=== PATIENT | male | born 1965 | race Caucasian/White ===

== ENCOUNTER 2019-04-02 11:23 | Inpatient (IN) | payer MEDICARE, MEDICAID ==
[2019-04-02] VITALS (33 sets, daily range): BP systolic 91–120; BP diastolic 28–75
[~2019-04-02] VITALS: Ht 175.3 cm; Wt 101.6 kg
--- NOTE | 2019-04-02 11:40 | NUR ---
patient [id number], homeless, hearing voices, "i am satellite". Food provided, and juice. Breathing evenly and unlabored. kept comofrtable, will continue to monitor accordingly.
[2019-04-02] MEDS ORDERED: ACETAMINOPHEN ES 500 MG TABLET ONE (11:49)
[2019-04-02 11:58] LABS: BASOPHILS % (AUTO) 0.2 % (0.0-2.0); EOSINOPHILS % (AUTO) 0.1 % (0.0-6.0); LYMPHOCYTES # (AUTO) 1.5 /CMM (0.8-4.8); LYMPHOCYTES % (AUTO) 7.9 % (20.0-44.0); MEAN CORPUSCULAR HGB CONC 31 g/dl (31.0-36.0); MEAN CORPUSCULAR VOLUME 93 fL (80-96); MONOCYTES # (AUTO) 1.1 /CMM (0.1-1.30); MONOCYTES % (AUTO) 5.6 % (2.0-12.0); NEUTROPHILS # (AUTO) 16.3 /CMM (1.8-8.9); NEUTROPHILS % (AUTO) 86.2 % (43.0-81.0); PLATELET COUNT (AUTO) 655 /CMM (150-450)
[2019-04-02] MEDS ORDERED: ACETAMINOPHEN ES 500 MG TABLET PO ONE (12:00)
[2019-04-02 12:04] LABS: CALCIUM, SERUM 8.4 mg/dL (8.5-10.1); CARBON DIOXIDE 30 mmol/L (21-32); CHLORIDE 90 mmol/L (98-107); CREATININE 0.8 mg/dL (0.6-1.3); GLUCOSE 144 mg/dL (74-106); POTASSIUM 2.9 mmol/L (3.5-5.1); SODIUM SERUM 130 mmol/L (136-145); UREA NITROGEN, BLOOD 21 mg/dL (7-18)
[2019-04-02 12:05] LABS: RED BLOOD CELL COUNT(AUTO) 1.18 MIL/uL (4.5-6.0)
[2019-04-02 12:07] LABS: HEMATOCRIT 11 % (39-51); HEMOGLOBIN 3.4 g/dL (13.5-17.5)
[2019-04-02 12:09] LABS: ALANINE AMINOTRANSFERASE 17 U/L (12-78); ALBUMIN 2.2 g/dL (3.4-5.0); ALCOHOL, BLOOD < 3 mg/dL (0-0); ALKALINE PHOSPHATASE 78 U/L (46-116); ASPARTATE AMINOTRANSFERASE 24 U/L (15-37); BILIRUBIN,DIRECT 0.2 mg/dL (0.0-0.2); BILIRUBIN,TOTAL 0.4 mg/dL (0.2-1.0); LIPASE 79 U/L (73-393); TOTAL PROTEIN, SERUM 6.6 g/dL (6.4-8.2)
[2019-04-02 12:10] LABS: ACETAMINOPHEN 0 ug/ml (10-30); SALICYLATE 1.2 mg/dL (2.8-20.0)
[2019-04-02] MEDS ORDERED: PANTOPRAZOLE 40 MG VIAL ONE ×2 (12:29→12:30)
[2019-04-02] MEDS ORDERED: PANTOPRAZOLE 80 MG in IV NS 0.9% 100 ML IV ONE (12:30)
[2019-04-02] MEDS ORDERED: PANTOPRAZOLE 40 MG VIAL IV ONE ×2 (12:30→12:35)
--- NOTE | 2019-04-02 12:39 | NUR ---
MEDICATED PER ERMD ORDER, PT NASEEM WELL. PT TO CT VIA HANSEL.
--- NOTE | 2019-04-02 12:48 | NUR ---
ICU 257
[2019-04-02] MEDS ORDERED: ONDANSETRON HCL/PF 4 MG/2 ML VIAL ONE (12:56)
[2019-04-02] MEDS ORDERED: POTASSIUM CL. PREMIX PERIPHER. 50 ML ONE (13:09)
[2019-04-02] MEDS ORDERED: Magnesium 1GM/D5W 100ML PREMIX 100 ML IV ONE ×2 (13:09→13:37)
[2019-04-02] MEDS: POTASSIUM CL. PREMIX PERIPHER. 50 ML IV SCH ×4 (13:30→16:04)
[2019-04-02] MEDS ORDERED: MAG HYDROX/AL HYDROX/SIMETH 30 ML UDC PO PRN (13:30)
[2019-04-02] MEDS: Magnesium 1GM/D5W 100ML PREMIX 100 ML IV SCH ×2 (13:30→14:47)
[2019-04-02] MEDS ORDERED: ACETAMINOPHEN 325 MG TABLET PO PRN (13:30)
[2019-04-02] MEDS ORDERED: ONDANSETRON HCL/PF 4 MG/2 ML VIAL IVP PRN (13:30)
[2019-04-02] MEDS ORDERED: MAGNESIUM HYDROXIDE 30 ML UDC PO PRN (13:30)
[2019-04-02] MEDS ORDERED: POTASSIUM CL. PREMIX PERIPHER. 150 ML ONE (13:37)
--- NOTE | 2019-04-02 13:46 | NUR ---
REPORT GIVEN TO NAZARIO MARTINEZ FOR CECELIA.
[2019-04-02 13:49] LABS: EOSINOPHILS % (MANUAL) 1 % (0-4); LYMPHOCYTES % (MANUAL) 11 % (16-48); MONOCYTES % (MANUAL) 4 % (0-11.0); NEUTROPHILS % (MANUAL) 84 (42-76)
[2019-04-02] MEDS ORDERED: LORAZEPAM INJ 2 MG/ML VIAL IV PRN (14:00)
[2019-04-02] MEDS ORDERED: PIPERACILLIN /TAZOBACTAM 3.375 G in IV D5W 50 ML IV SCH (14:00)
[2019-04-02] MEDS ORDERED: ONDANSETRON HCL/PF 4 MG/2 ML VIAL IV PRN (14:00)
--- NOTE | 2019-04-02 14:00 | NUR ---
COLLET GLUERSENIOR BOOKKEEPER NOTES PT RECEIVED FROM ER WITH A DIAGNOSIS OF ACUTE GI BLEED AND SEVERE ANEMIA. ORDERS NOTED BY MD ROMAN FOR BLOOD TRANSFUSION. PT NOTED TO BE A/O X2-3 WITH PERIODS OF CONFUSION AND HALLUCINATIONS. HE DENIES ANY PAIN AND/OR DIZZINESS AT THIS TIME. IVS NOTED TO LEFT AND RIGHT AC BOTH 18G. PT CURRENTLY RECEIVING BOTH IV MG AND K REPLACEMENT. WILL CONTINUE FURTHER REPLACEMENTS ORDERED. BELONGINGS VERIFIED. BED IN LOW LOCKED POSITION, SIDE RIAL SUP X2, CALL LIGHT WITHIN REACH. WILL AWAIT FOR FURTHER MD ORDERS AND CONTINUE ADMISSION PROCESS
[2019-04-02] MEDS: NEXIUM 40 MG VIAL IV SCH ×2 (14:49→21:50)
[2019-04-02 15:53] LABS: IRON, SERUM 7 ug/dl (50-175); TOTAL IRON BINDING CAPACITY 213 ug/dl (250-450)
[2019-04-02] MEDS: IV NS 0.9% 1,000 ML IV PRN (16:06)
[2019-04-02 16:07] LABS: FERRITIN 36 ng/mL (8-388)
--- NOTE | 2019-04-02 16:51 | NUR ---
SKI MOLDER NOTES: MD ORDER CLARIFICATION MD ROMAN CONTACTED IN REGARDS TO BLOOD TRANSFUSION ORDER ONLY 2 UNITS OF BLOOD ARE ORDERED HOWEVER 3 ARE INDICATED IN HIS NOTES. PER "TRANSFUSE 3UNITS AND REPEAT CBC AT 1999". WILL CARRY OUT ORDERS INDICATED
--- NOTE | 2019-04-02 18:32 | NUR ---
NETWORK SUPPORT SPECIALIST NOTES: DR RAMIREZ F/U CALLED RECEIVED PT MD IN REGARDS TO CONSULT. MD UPDATED ON PT'S CONDITION, VITALS, LABS AND RESULTS OF CT. MD STATES THAT HE WILL COME TO SEE PT
--- NOTE | 2019-04-02 18:59 | NUR ---
SALES LEDGER CLERK NOTES NO ACUTE CHANGES IN PT'S CONDITION SINCE ADMISSION. PT RECEIVED A TOTAL OF 1UNIT PRBC WITH THE SECOND CURRENTLY INFUSING. NO TRANSFUSION REACTIONS NOTED. VSS STABLE. HE CONTINUES TO DENY ANY PAIN. CONDOM CATHETER REMAINS C/D/I. PERIHERNIAL IVS REMAINS PATENT AND INTACT. PT CONTINUE TOLERATING NS INFUSION AT SET RATE WELL. WILL ENDORSE TO NIGHTSHIFT RN FOR CECELIA
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
--- NOTE | 2019-04-02 19:30 | NUR ---
LITERARY AGENT DR RAMIREZ AT BEDSIDE EVALUATING PT; PER MD PT NEEDS TO BE TRANSFERRED TO HIGHER LEVEL OF CARE. NO INTERVENTIONS BY DR RAMIREZ AT THIS TIME. PLACED ORDER FOR CM TO WORK ON TRANSFER.
--- NOTE | 2019-04-02 21:15 | NUR ---
LUBRICATION WORKER SECOND PRBC TRANSFUSION COMPLETE; NO IMMEDIATE S/O ADVERSE REACTIONS. CBC PENDING FOR 2200. NO ACTIVE S/O BLEEDING NOTED. CONTINUE TO MONITOR.
[2019-04-02] MEDS: PIPERACILLIN /TAZOBACTAM 3.375 G in IV D5W 100 ML IV SCH (21:50)
[2019-04-02 22:23] LABS: BASOPHILS % (AUTO) 0.2 % (0.0-2.0); EOSINOPHILS % (AUTO) 0.2 % (0.0-6.0); LYMPHOCYTES # (AUTO) 1.2 /CMM (0.8-4.8); LYMPHOCYTES % (AUTO) 7.3 % (20.0-44.0); MEAN CORPUSCULAR HGB CONC 33 g/dl (31.0-36.0); MEAN CORPUSCULAR VOLUME 88 fL (80-96); MONOCYTES # (AUTO) 0.8 /CMM (0.1-1.30); MONOCYTES % (AUTO) 4.6 % (2.0-12.0); NEUTROPHILS # (AUTO) 14.3 /CMM (1.8-8.9); NEUTROPHILS % (AUTO) 87.7 % (43.0-81.0); PLATELET COUNT (AUTO) 567 /CMM (150-450); WHITE BLOOD COUNT (AUTO) 16.3 K/uL (4.3-11.0)
--- NOTE | 2019-04-02 22:30 | NUR ---
BOOKKEEPING MACHINE MECHANIC 12/08 PROCEED WITH THIRD PRBC TRANSFUSION.
[2019-04-02 22:32] LABS: HEMATOCRIT 15 % (39-51)
--- NOTE | 2019-04-02 22:50 | NUR ---
EXCAVATOR BACKHOE OPERATOR THIRD PRBC TRANSFUSION STARTED.
[2019-04-02 23:01] LABS: EOSINOPHILS % (MANUAL) 1 % (0-4); LYMPHOCYTES % (MANUAL) 9 % (16-48); MONOCYTES % (MANUAL) 4 % (0-11.0); NEUTROPHILS % (MANUAL) 86 (42-76)
[2019-04-03] VITALS (38 sets, daily range): BP systolic 74–109; BP diastolic 34–67
--- NOTE | 2019-04-03 01:45 | NUR ---
CAT BREEDER PRBC TRANSFUSION COMPLETE. ORDER PLACED FOR HH W/STANDING ORDER TO TRANSFUSE IF HG <7. CONTINUE TO MONITOR.
--- NOTE | 2019-04-03 02:40 | NUR ---
SADDLE AND HARNESS MAKER 5.02/09 NO ACTIVE BLEEDING NOTED. ORDER PLACED FOR FOURTH PRBC.
[2019-04-03 02:41] LABS: HEMOGLOBIN 5.7 g/dL (13.5-17.5)
--- NOTE | 2019-04-03 03:30 | NUR ---
HASSOCK MAKER PRBC TRANSFUSION STARTED.
[2019-04-03] MEDS: PIPERACILLIN /TAZOBACTAM 3.375 G in IV D5W 100 ML IV SCH ×3 (05:02→19:51)
--- NOTE | 2019-04-03 06:42 | NUR ---
MANAGER INSTALLATION FOURTH PRBC TRANSFUSING; NO BM ON THIS SHIFT.
--- NOTE | 2019-04-03 06:59 | NUR ---
CHILD PSYCHOLOGY TEACHER FOURTH PRBC TRANSFUSED; NO IMMEDIATE S/O ADVERSE REACTIONS. LAB WILL DO AM LABS AT 0730.
[2019-04-03 07:48] LABS: BASOPHILS # (AUTO) 0.2 /CMM (0.0-0.2); BASOPHILS % (AUTO) 1.1 % (0.0-2.0); EOSINOPHILS % (AUTO) 0.4 % (0.0-6.0); MEAN CORPUSCULAR HGB CONC 34 g/dl (31.0-36.0); MEAN CORPUSCULAR VOLUME 88 fL (80-96); MONOCYTES # (AUTO) 0.5 /CMM (0.1-1.30); MONOCYTES % (AUTO) 3.9 % (2.0-12.0); NEUTROPHILS # (AUTO) 12.5 /CMM (1.8-8.9); NEUTROPHILS % (AUTO) 87.6 % (43.0-81.0); PLATELET COUNT (AUTO) 527 /CMM (150-450); WHITE BLOOD COUNT (AUTO) 14.2 K/uL (4.3-11.0)
[2019-04-03 07:50] LABS: CALCIUM, SERUM 7.7 mg/dL (8.5-10.1); CREATININE 0.8 mg/dL (0.6-1.3); MAGNESIUM 2.5 mg/dL (1.8-2.4); POTASSIUM 3.5 mmol/L (3.5-5.1)
[2019-04-03 07:51] LABS: HEMOGLOBIN 6.6 g/dL (13.5-17.5)
[2019-04-03 07:52] LABS: HEMATOCRIT 20 % (39-51)
[2019-04-03 08:01] LABS: THYROID STIMULATING HORMONE 1.916 uIU/mL (0.358-3.74)
[2019-04-03 09:17] LABS: LYMPHOCYTES % (MANUAL) 7 % (16-48); MONOCYTES % (MANUAL) 5 % (0-11.0); NEUTROPHILS % (MANUAL) 88 (42-76)
[2019-04-03] MEDS: NEXIUM 40 MG VIAL IV SCH ×2 (10:29→20:00)
[2019-04-03] MEDS: IV NS 0.9% 1,000 ML IV PRN ×2 (12:19→20:02)
[2019-04-03 14:43] LABS: BASOPHILS % (AUTO) 0.2 % (0.0-2.0); EOSINOPHILS % (AUTO) 0.5 % (0.0-6.0); HEMATOCRIT 22 % (39-51); HEMOGLOBIN 7.1 g/dL (13.5-17.5); LYMPHOCYTES # (AUTO) 1.1 /CMM (0.8-4.8); LYMPHOCYTES % (AUTO) 9.1 % (20.0-44.0); MEAN CORPUSCULAR HGB CONC 33 g/dl (31.0-36.0); MEAN CORPUSCULAR VOLUME 88 fL (80-96); MONOCYTES # (AUTO) 0.7 /CMM (0.1-1.30); MONOCYTES % (AUTO) 5.6 % (2.0-12.0); NEUTROPHILS # (AUTO) 10.6 /CMM (1.8-8.9); NEUTROPHILS % (AUTO) 84.6 % (43.0-81.0); PLATELET COUNT (AUTO) 511 /CMM (150-450); RED BLOOD CELL COUNT(AUTO) 2.45 MIL/uL (4.5-6.0); WHITE BLOOD COUNT (AUTO) 12.5 K/uL (4.3-11.0)
[2019-04-03 18:22] LABS: EOSINOPHILS % (MANUAL) 1 % (0-4); LYMPHOCYTES % (MANUAL) 8 % (16-48); MONOCYTES % (MANUAL) 6 % (0-11.0); NEUTROPHILS % (MANUAL) 85 (42-76)
--- NOTE | 2019-04-03 19:30 | NUR ---
RIDING TEACHER INITIAL NOTES RECEIVED PATIENT IN BED, AWAKE, ALERT AND ORIENTED X2, BUT WITH PERIODS OF CONFUSION AND AGITATION. PATIENT REQUESTING FOR WATER. OFFERED ICE CHIPS PATIENT IS NPO, (PER GLOBE TESTER JESSIE, OK FOR SOME ICE CHIPS) BUT PATIENT REFUSED, AND NOTED TO BECOME AGITATED, CURSING AND BABBLING NONSENSICAL THOUGHTS. EXPLAINED TO PATIENT WHY HE IS NPO, PATIENT VERBALIZED UNDERSTANDING, BUT STILL UPSET AND CONTINUES TO SPEAK NONSENSICAL THOUGHTS. ATTEMPTED TO REDIRECT PATIENT, INEFFECTIVE. SECURITY CALLED TO BEDSIDE TO AID IN REDIRECTION/DE-ESCALATION. UPON ARRIVAL OF SECURITY, PATIENT NOTED TO DE-ESCALATE, AND IS NOW CALM AND COOPERATIVE ANSWERING QUESTIONS. BEDSIDE REFUSE DRIVER READS SINUS RHYTHM HR 79 BPM. URINAL AT BEDSIDE. CALL LIGHT WITHIN EASY REACH, BED IN LOWEST AND LOCKED POSITION. WILL CONTINUE TO CLOSELY MONITOR
--- NOTE | 2019-04-03 20:00 | NUR ---
FLATBED STITCHER NOTES PATIENT NOTED TO BE MORE CALM NOW, ANSWERING ALL QUESTIONS, NO LONGER AGITATED. PATIENT CONTINUES WITH PERIODS OF CONFUSION, WILL REDIRECT AND REORIENT NEEDED.
[2019-04-03 20:50] LABS: BASOPHILS % (AUTO) 0.2 % (0.0-2.0); HEMOGLOBIN 7.3 g/dL (13.5-17.5); MONOCYTES # (AUTO) 0.6 /CMM (0.1-1.30); RED BLOOD CELL COUNT(AUTO) 2.44 MIL/uL (4.5-6.0)
[2019-04-03 21:05] LABS: EOSINOPHILS % (AUTO) 0.6 % (0.0-6.0); HEMATOCRIT 22 % (39-51); LYMPHOCYTES # (AUTO) 1.3 /CMM (0.8-4.8); LYMPHOCYTES % (AUTO) 12.1 % (20.0-44.0); MEAN CORPUSCULAR HGB CONC 34 g/dl (31.0-36.0); MEAN CORPUSCULAR VOLUME 88 fL (80-96); MONOCYTES % (AUTO) 5.8 % (2.0-12.0); NEUTROPHILS # (AUTO) 8.5 /CMM (1.8-8.9); NEUTROPHILS % (AUTO) 81.3 % (43.0-81.0); PLATELET COUNT (AUTO) 513 /CMM (150-450)
[2019-04-03 21:37] LABS: LYMPHOCYTES % (MANUAL) 8 % (16-48); MONOCYTES % (MANUAL) 2 % (0-11.0); NEUTROPHILS % (MANUAL) 90 (42-76)
[2019-04-04] VITALS (24 sets, daily range): BP systolic 91–134; BP diastolic 35–72
[2019-04-04 02:05] LABS: BASOPHILS # (AUTO) 0.2 /CMM (0.0-0.2); BASOPHILS % (AUTO) 1.6 % (0.0-2.0); EOSINOPHILS % (AUTO) 7.7 % (0.0-6.0); HEMATOCRIT 21 % (39-51); HEMOGLOBIN 7.1 g/dL (13.5-17.5); LYMPHOCYTES # (AUTO) 0.5 /CMM (0.8-4.8); LYMPHOCYTES % (AUTO) 4.6 % (20.0-44.0); MEAN CORPUSCULAR HGB CONC 34 g/dl (31.0-36.0); MEAN CORPUSCULAR VOLUME 88 fL (80-96); MONOCYTES # (AUTO) 0.4 /CMM (0.1-1.30); MONOCYTES % (AUTO) 3.8 % (2.0-12.0); NEUTROPHILS # (AUTO) 8.9 /CMM (1.8-8.9); NEUTROPHILS % (AUTO) 82.3 % (43.0-81.0); PLATELET COUNT (AUTO) 521 /CMM (150-450); RED BLOOD CELL COUNT(AUTO) 2.41 MIL/uL (4.5-6.0); WHITE BLOOD COUNT (AUTO) 10.8 K/uL (4.3-11.0)
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
[2019-04-04] MEDS: PIPERACILLIN /TAZOBACTAM 3.375 G in IV D5W 100 ML IV SCH ×3 (04:17→20:13)
[2019-04-04 04:42] LABS: BASOPHILS % (AUTO) 0.2 % (0.0-2.0); EOSINOPHILS % (AUTO) 0.8 % (0.0-6.0); HEMATOCRIT 22 % (39-51); HEMOGLOBIN 7.3 g/dL (13.5-17.5); LYMPHOCYTES # (AUTO) 1.5 /CMM (0.8-4.8); LYMPHOCYTES % (AUTO) 13.3 % (20.0-44.0); MEAN CORPUSCULAR HGB CONC 33 g/dl (31.0-36.0); MEAN CORPUSCULAR VOLUME 89 fL (80-96); MONOCYTES # (AUTO) 0.7 /CMM (0.1-1.30); MONOCYTES % (AUTO) 6.3 % (2.0-12.0); NEUTROPHILS # (AUTO) 8.9 /CMM (1.8-8.9); NEUTROPHILS % (AUTO) 79.4 % (43.0-81.0); PLATELET COUNT (AUTO) 530 /CMM (150-450); RED BLOOD CELL COUNT(AUTO) 2.46 MIL/uL (4.5-6.0); WHITE BLOOD COUNT (AUTO) 11.2 K/uL (4.3-11.0)
[2019-04-04 04:49] LABS: CREATININE 0.8 mg/dL (0.6-1.3); POTASSIUM 3.5 mmol/L (3.5-5.1)
--- NOTE | 2019-04-04 06:00 | NUR ---
LINEMAN A CLASS CLOSING NOTES PATIENT KEPT COMFORTABLE THROUGHOUT THE SHIFT. PARTIAL BED BATH RENDERED PATIENT ALLOWED. PATIENT AT TIMES ALERT X1-2 TO SELF, BUT DISORIENTED WITH PERIODS OF AGITATION, REQUIRING FREQUENT REDIRECTION THROUGHOUT THE SHIFT. PATIENT NOW SLEEPING IN BED, APPEARS COMFORTABLE, NO FACIAL GRIMACE NOTED. WILL ENDORSE THE PATIENT TO THE AM SHIFT NURSE FOR CONTINUITY OF CARE
--- NOTE | 2019-04-04 07:15 | NUR ---
INVESTIGATOR INTERNAL REVENUE INITIAL NOTES: Rec'd pt on bed, not in any distress, A/O x 1 confused. No SOB while on R/A. SR on telemonitor. IV line access patent & intact w/ no s/sx of infection/infiltration noted - R AC G18, SL & L EJ G20 w/ NS x 75 cc/hr infusing well. Safety precaution in place w/ be din lowest & locked pos. Call light placed w/in reach. Will cont to monitor & attend pt needs.
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
[2019-04-04] MEDS ORDERED: Z GUARD REMEDY 2 OZ OINT TP PRN (08:00)
--- NOTE | 2019-04-04 08:03 | NUR ---
Pt seen & examined by Estrada ROWAN w/ orders made & carried out.
[2019-04-04 08:20] LABS: BASOPHILS % (AUTO) 0.3 % (0.0-2.0); EOSINOPHILS % (AUTO) 0.7 % (0.0-6.0); HEMATOCRIT 23 % (39-51); HEMOGLOBIN 7.6 g/dL (13.5-17.5); LYMPHOCYTES # (AUTO) 1.4 /CMM (0.8-4.8); LYMPHOCYTES % (AUTO) 11.5 % (20.0-44.0); MEAN CORPUSCULAR HGB CONC 33 g/dl (31.0-36.0); MEAN CORPUSCULAR VOLUME 89 fL (80-96); MONOCYTES # (AUTO) 0.7 /CMM (0.1-1.30); MONOCYTES % (AUTO) 5.8 % (2.0-12.0); NEUTROPHILS # (AUTO) 9.7 /CMM (1.8-8.9); NEUTROPHILS % (AUTO) 81.7 % (43.0-81.0); PLATELET COUNT (AUTO) 580 /CMM (150-450); WHITE BLOOD COUNT (AUTO) 11.8 K/uL (4.3-11.0)
[2019-04-04] MEDS: Z GUARD REMEDY 2 OZ OINT TP SCH (08:36)
[2019-04-04] MEDS: IV D5/ 0.9% NACL 1,000 ML IV PRN ×2 (08:36→22:17)
[2019-04-04] MEDS: NEXIUM 40 MG VIAL IV SCH ×2 (08:37→20:16)
[2019-04-04 14:13] LABS: BASOPHILS % (AUTO) 0.4 % (0.0-2.0); EOSINOPHILS % (AUTO) 0.9 % (0.0-6.0); HEMATOCRIT 24 % (39-51); HEMOGLOBIN 7.7 g/dL (13.5-17.5); LYMPHOCYTES # (AUTO) 1.5 /CMM (0.8-4.8); MEAN CORPUSCULAR HGB CONC 33 g/dl (31.0-36.0); MEAN CORPUSCULAR VOLUME 90 fL (80-96); MONOCYTES # (AUTO) 0.9 /CMM (0.1-1.30); MONOCYTES % (AUTO) 7.7 % (2.0-12.0); PLATELET COUNT (AUTO) 573 /CMM (150-450); RED BLOOD CELL COUNT(AUTO) 2.64 MIL/uL (4.5-6.0); WHITE BLOOD COUNT (AUTO) 11.5 K/uL (4.3-11.0)
[2019-04-04 15:49] LABS: WHITE BLOOD COUNT (AUTO) 10.5 K/uL (4.3-11.0)
--- NOTE | 2019-04-04 18:16 | NUR ---
Pt seen & examined by Dr. Leonard, per MD may change CBC monitoring to H/H q12H.
--- NOTE | 2019-04-04 18:39 | NUR ---
FLOUR INSPECTOR CLOSING NOTES: No significant changes noted w/in shift. Pt remains A/O x 1 still w/ confusion. No SOB while on R/A. SR on telemonitor. IV line access kept patent & intact w/ no s/sx of infection/infiltration noted - R AC G18, SL & L EJ G20 w/ D5NS x 75 cc/hr infusing well. Safety precaution kept in place at all times w/ bed in lowest & locked pos. Call light placed w/in reach. Will endorsed to PM RN for CECELIA.
--- NOTE | 2019-04-04 19:30 | NUR ---
BLUEPRINT CUTTER INITIAL NOTES RECEIVED PATIENT IN BED, AWAKE, ALERT AND ORIENTED X1, BUT WITH PERIODS OF CONFUSION AND AGITATION, UNABLE TO HOLD CONVERSATION DUE TO WANDERING THOUGHTS, REDIRECTABLE. BREATHING EVEN AND NONLABORED, TOLERATING ROOM AIR WELL. BEDSIDE TRANSPORT OPERATIONS INSPECTOR READS SINUS RHYTHM HR 87 BPM. URINAL AT BEDSIDE. CALL LIGHT WITHIN EASY REACH, BED IN LOWEST AND LOCKED POSITION. WILL CONTINUE TO CLOSELY MONITOR
[2019-04-05] VITALS (26 sets, daily range): BP systolic 102–137; BP diastolic 46–87
--- NOTE | 2019-04-05 | NUR ---
LECTURER IN COMPUTER SCIENCE NOTES PATIENT NOTED TO WAKE UP, MORE AGITATED AND CONFUSED COMPARED TO BASELINE. REORIENTATION AND REDIRECTION EFFORTS UTILIZED, EFFECTIVE, PATIENT APOLOGIZED FOR BEHAVIOR AND BECAME CALM AND COOPERATIVE, STILL WITH WANDERING THOUGHTS, UNABLE TO HOLD CONVERSATION
--- NOTE | 2019-04-05 04:00 | NUR ---
R AND D LAB TECHNICIAN NOTES PATIENT REFUSING BED BATH. OFFERED TO AT LEAST CHANGE PATIENT'S SHEETS OR DIAPER, BUT PATIENT STRONGLY REFUSING. WILL CONTINUE CLOSE MONITORING
[2019-04-05] MEDS: PIPERACILLIN /TAZOBACTAM 3.375 G in IV D5W 100 ML IV SCH ×3 (04:20→19:26)
[2019-04-05 04:41] LABS: HEMOGLOBIN 7.5 g/dL (13.5-17.5)
--- NOTE | 2019-04-05 06:58 | NUR ---
TEXTILE TECHNICAL OFFICER CLOSING NOTES PATIENT RESTING IN BED, APPEARS COMFORTABLE. PATIENT AGAIN REFUSING TO HAVE LINENS CHANGED. NO ACUTE CHANGES THROUGHOUT THE SHIFT, WILL ENDORSE PATIENT TO THE AM SHIFT NURSE FOR CONTINUITY OF CARE
--- NOTE | 2019-04-05 07:00 | NUR ---
RN NOTES RECEIVED PATIENT ON BED, A/Ox1, CONFUSED AT TIMES , UNABLE TO HOLD CONVERSATION ON 2L O2 N/C , NO SOB NOTED, RESPIRATION EVEN AND UNLABORED, ON TELE SR HR IN 60'S , PT VOIDING PER URINAL ,NPO PER MD ORDER , NO ACTIVE BLEEDING NOTED, CALL LIGHT WITHIN EASY REACH, BED IN LOWEST AND LOCKED POSITION. WILL CONTINUE TO CLOSELY MONITOR.
[2019-04-05] MEDS: NEXIUM 40 MG VIAL IV SCH (08:13)
[2019-04-05] MEDS: Z GUARD REMEDY 2 OZ OINT TP SCH (08:14)
[2019-04-05] MEDS: IV D5/ 0.9% NACL 1,000 ML IV PRN (10:47)
--- NOTE | 2019-04-05 12:00 | NUR ---
RN NOTES VSS STABLE, NO DISTRESS NOTED , PT IS CONFUSED, CONTINUE TO MONITOR .
[2019-04-05] MEDS: SOD FERRIC GLUC 125 MG in IV NS 0.9% 100 ML IV SCH (14:20)
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
--- NOTE | 2019-04-05 15:00 | NUR ---
RN NOTES R AC IV LEAKING FORM THE SITE, H/L D/JESSICA, NEW LINE STARTED ON R AC G 20 , CONTINUE TO MONITOR.
[2019-04-05] MEDS: PANTOPRAZOLE 40 MG VIAL IV SCH (17:00)
--- NOTE | 2019-04-05 18:17 | NUR ---
RN NOTES PT STABLE, NO SIGNIFICANT CHANGES NOTED ON THIS SHIFT, SR UP x3, CALL LIGHT WITHIN EASY REACH, WILL ENDORSE TO TAX STAFF ACCOUNTANT NURSE FOR CONTINUITY OF CARE .
[2019-04-05 20:41] LABS: HEMOGLOBIN 7.8 g/dL (13.5-17.5)
[2019-04-06] VITALS (23 sets, daily range): BP systolic 93–129; BP diastolic 41–106
[2019-04-06] MEDS: IV D5/ 0.9% NACL 1,000 ML IV PRN ×2 (01:04→15:10)
[2019-04-06] MEDS: PIPERACILLIN /TAZOBACTAM 3.375 G in IV D5W 100 ML IV SCH ×3 (03:31→20:42)
[2019-04-06 04:52] LABS: BASOPHILS % (AUTO) 0.6 % (0.0-2.0); EOSINOPHILS % (AUTO) 1.3 % (0.0-6.0); HEMATOCRIT 22 % (39-51); HEMOGLOBIN 7.7 g/dL (13.5-17.5); LYMPHOCYTES # (AUTO) 1.3 /CMM (0.8-4.8); MEAN CORPUSCULAR HGB CONC 34 g/dl (31.0-36.0); MEAN CORPUSCULAR VOLUME 89 fL (80-96); MONOCYTES # (AUTO) 0.6 /CMM (0.1-1.30); MONOCYTES % (AUTO) 8.5 % (2.0-12.0); NEUTROPHILS # (AUTO) 5.2 /CMM (1.8-8.9); NEUTROPHILS % (AUTO) 71.6 % (43.0-81.0); PLATELET COUNT (AUTO) 549 /CMM (150-450); RED BLOOD CELL COUNT(AUTO) 2.51 MIL/uL (4.5-6.0); WHITE BLOOD COUNT (AUTO) 7.3 K/uL (4.3-11.0)
[2019-04-06 05:14] LABS: CALCIUM, SERUM 8.4 mg/dL (8.5-10.1); CREATININE 0.8 mg/dL (0.6-1.3); POTASSIUM 3.7 mmol/L (3.5-5.1)
--- NOTE | 2019-04-06 07:00 | NUR ---
SORTING GRAPPLE OPERATOR NOTES RECEIVED BEDSIDE REPORT. PATIENT A/O X2 WITH CONFUSION AT TIMES. NO SIGNS OR SYMPTOMS OF RESPIRATORY DISTRESS SATURATING 98% ON ROOM AIR NO ACUTE PAIN NOTED. SINUS ON MONITOR WITH PVC. NO COMPLAINT OF NAUSEA OR VOMITING WANTS TO EAT. IVF RUNNING D5NS@ 75 ML/HR. IV ACCESS TO LAC # 20 GAUGE AND LFA # 20 GAUGE. NPO AT THIS TIME PER REPORT AND SW NOTES PATIENT AWAITING TRANSFER FOR HIGHER LEVEL OF CARE.SAFETY PRECAUTIONS IN PLACE BED IN LOW LOCKED POSITION CALL LIGHT WITHIN REACH.WILL CONT TO MONITOR ACCORDINGLY
[2019-04-06] MEDS: PANTOPRAZOLE 40 MG VIAL IV SCH ×2 (08:36→17:26)
[2019-04-06] MEDS: Z GUARD REMEDY 2 OZ OINT TP SCH (08:37)
[2019-04-06 13:21] LABS: HEMOGLOBIN 7.4 g/dL (13.5-17.5)
[2019-04-06] MEDS: SOD FERRIC GLUC 125 MG in IV NS 0.9% 100 ML IV SCH (15:22)
--- NOTE | 2019-04-06 17:22 | NUR ---
ORDER OBTAINED FOR PICC LINE FROM GENARO. PT TO START TPN
--- NOTE | 2019-04-06 17:22 | NUR ---
GENARO TO PUT ORDER IN FOR TPN
--- NOTE | 2019-04-06 18:45 | NUR ---
SPOKE WITH MAYA GARCIA NP TPN AND PICC ON HOLD D/T TRANSFER CONSULT WITH [facility] TO TRY AND TRANSFER TO TO [facility] . WILL ENDORSE TO NOC.
--- NOTE | 2019-04-06 19:57 | NUR ---
CUFF STITCHER. INITIAL ASSESSMENT, RECEIVED THE PT REST ON THE BED. AWAKE, ALERT, FOLLOW COMMANDS. SHIPS OR BARGES LOADER SHOWING S ANTWAN. ROOM AIR. SAT 98%, NO ACUTE DISTRESS NOTED. IV LT AC 20G. HOB ELEVATED. AFEBRILE, WILL CONTINUE TO MONITOR VITALS.
[2019-04-06 20:03] LABS: HEMOGLOBIN 7.6 g/dL (13.5-17.5)
[2019-04-07] VITALS (20 sets, daily range): BP systolic 103–140; BP diastolic 45–81
--- NOTE | 2019-04-07 03:10 | NUR ---
ARMORED TRUCK DRIVER.AM CARE, ORAL CARE, BED BATH GIVEN. LINEN CHANGED, REMAINING SAME IVF RUNNING, PT ON ROOM AIR, SAT 98%, NO ACUTE DISTRESS NOTED, DIRECTOR REACTOR PROJECTS SHOWING NSR. IV LT HAND 20G, HOB ELEVATED,N DURING SHIFT NO ACTIVE BLEEDING NOTED. AFEBRILE, WILL CONTINUE TO MONITOR VITALS.
[2019-04-07] MEDS: PIPERACILLIN /TAZOBACTAM 3.375 G in IV D5W 100 ML IV SCH ×3 (03:44→20:29)
[2019-04-07] MEDS: IV D5/ 0.9% NACL 1,000 ML IV PRN ×2 (03:55→15:37)
[2019-04-07 04:08] LABS: BASOPHILS % (AUTO) 0.5 % (0.0-2.0); EOSINOPHILS % (AUTO) 1.8 % (0.0-6.0); HEMATOCRIT 23 % (39-51); HEMOGLOBIN 7.5 g/dL (13.5-17.5); LYMPHOCYTES # (AUTO) 1.5 /CMM (0.8-4.8); LYMPHOCYTES % (AUTO) 20.6 % (20.0-44.0); MEAN CORPUSCULAR HGB CONC 33 g/dl (31.0-36.0); MEAN CORPUSCULAR VOLUME 90 fL (80-96); MONOCYTES # (AUTO) 0.7 /CMM (0.1-1.30); MONOCYTES % (AUTO) 9.7 % (2.0-12.0); NEUTROPHILS % (AUTO) 67.4 % (43.0-81.0); PLATELET COUNT (AUTO) 549 /CMM (150-450); RED BLOOD CELL COUNT(AUTO) 2.52 MIL/uL (4.5-6.0); WHITE BLOOD COUNT (AUTO) 7.5 K/uL (4.3-11.0)
[2019-04-07 04:20] LABS: CREATININE 0.7 mg/dL (0.6-1.3); POTASSIUM 3.5 mmol/L (3.5-5.1)
[2019-04-07] MEDS ORDERED: VANCOMYCIN 1.5 GM in IV D5W 500ml IV ONE (06:30)
[2019-04-07] MEDS: PANTOPRAZOLE 40 MG VIAL IV SCH ×2 (09:05→16:29)
[2019-04-07] MEDS: Z GUARD REMEDY 2 OZ OINT TP SCH (09:06)
--- NOTE | 2019-04-07 10:39 | NUR ---
RN NOTE 0715: Received patient awake, alert to name, does not know which hospital he is in right now, does not know the date. Reoriented patient. Made him aware for the plan of care, awaiting other hospital's bed availability. SB on the monitor. PIVs intact. IVF infusing as ordered. Noted with nausea, patient spits clear white sputum. Able to use urinals. Tolerated room air. Remained NPO. No BM endorsed from last shift, will continue to monitor. 1000: S/E by Len STERILE PROCESSING TECHNOLOGIST, verbalized able to move to [facility], made CN aware. Per STERILE PROCESSING TECHNOLOGIST, hold off TPN for now, still awaiting placement.
[2019-04-07] MEDS: SOD FERRIC GLUC 125 MG in IV NS 0.9% 100 ML IV SCH (13:54)
[2019-04-07] MEDS ORDERED: TPN/PPN PER PHARMACY IV PRN (16:30)
[2019-04-07 18:35] LABS: HEMOGLOBIN 7.7 g/dL (13.5-17.5)
--- NOTE | 2019-04-07 18:41 | NUR ---
RN NOTE 1830: S/E by Richard DIRECTOR OF HOTEL, made aware for the plan of transfer to other hospital, and agreed for the hold off for TPN for now. No any significant changes noted. No active bleeding noted, no BM on my shift, able to change linens and give bed bath. Patient noted with gagging/inducing to vomit, encouraged not to do it. Green bag provided, noted with spitting clear white secretions. PIVs intact. 1840: Preparing patient for transfer to [facility], patient aware for the transfer.
--- NOTE | 2019-04-07 19:02 | NUR ---
RN NOTE Brought patient to [facility] 107 via bed, no any significant changes noted. VSS. Endorsed care to Shania LANGE. Placed in the monitor.
--- NOTE | 2019-04-07 19:30 | NUR ---
[facility] RN NOTES RECEIVED PTS AND REPORT FROM LAZARO MANAGER PE , PTS IS ALERT X1-2 WITH CONFUSION , NPO STATUS PTS ON IVF OF D5NS AT 75CC/HR INFUSING WELL . ALL NEEDS ATTENDED TOO ON TELE MONITOR ANTWAN ON THE MONITOR 44-58 , NO SOB NO DISTRESS NOTED . SATING 96% ON ROOM AIR .V/S STABLE AFEBRILE , BREATHING EVEN AND UNLABORED , DUE IVPB ANTIBIOTIC GIVEN ORDERED , PTS NOTED WITH EPISODE OF HALLUCINATION , WILL CONTINUE TO MONITOR PTS.
[2019-04-08] VITALS: BP 115/60
[2019-04-08 04:00] VITALS: BP_SYST 112; BP_SYST 115; BP_DIAS 53; BP_DIAS 60
[2019-04-08] MEDS: PIPERACILLIN /TAZOBACTAM 3.375 G in IV D5W 100 ML IV SCH ×3 (04:32→20:55)
[2019-04-08] MEDS: IV D5/ 0.9% NACL 1,000 ML IV PRN (05:16)
--- NOTE | 2019-04-08 05:47 | NUR ---
ZI RN NOTES PTS NON COMPLIANT TO CARE, PTS REFUSED MORNING CARE, REFUSE TELE BOX.EXPLAIN R/B.WILL CONTINUE TO MONITOR PTS.
--- NOTE | 2019-04-08 06:42 | NUR ---
ZI RN NOTES PTS REMAINS IN BED STILL CONFUSED AND HALLUCINATING, V/S STABLE AFEBRILE CONTINUE ON IVF OF D5NS AT 75CC/HR. WILL ENDORSE TO RN DAY SHIFT FOR CONTINUITY OF CARE PTS REMAIN ON NPO STATUS.
--- NOTE | 2019-04-08 07:20 | NUR ---
ZI/RN OPENING NOTES RECEIVED PATIENT IN BED AWAKE ALERT AND ABLE TO MAKE NEEDS KNOWN. PATIENT IS ALERT AND ORIENTED X1-2 WITH CONFUSION. NO PAIN OR ACUTE DISTRESS AT THIS TIME. RESPIRATION EVEN AND UNLABORED. SKIN IS DRY WARM TO TOUCH. CONTINUES ON NPO STATUS. PATIENT ON IVF OF D5NS AT 75CC/HR INFUSING WELL. IV SITE INTACT AND PATENT. NO S/S OF INFECTION OR INFILTRATION. PATIENT ON TELE MONITOR AROUND 50-60'S. ALL NEEDS ANTICIPATED. CALL LIGHT WITHIN REACHED. BED LOCKED AND IN LOWEST POSITION. SAFETY MAINTAINED. PLAN OF CARE DISCUSSED. WILL CONTINUE TO MONITOR CLOSELY.
[2019-04-08 07:41] LABS: BASOPHILS % (AUTO) 0.6 % (0.0-2.0); EOSINOPHILS % (AUTO) 2.2 % (0.0-6.0); HEMATOCRIT 23 % (39-51); HEMOGLOBIN 7.5 g/dL (13.5-17.5); LYMPHOCYTES # (AUTO) 1.4 /CMM (0.8-4.8); MEAN CORPUSCULAR HGB CONC 32 g/dl (31.0-36.0); MEAN CORPUSCULAR VOLUME 92 fL (80-96); MONOCYTES # (AUTO) 0.4 /CMM (0.1-1.30); MONOCYTES % (AUTO) 7.8 % (2.0-12.0); NEUTROPHILS # (AUTO) 3.7 /CMM (1.8-8.9); NEUTROPHILS % (AUTO) 65.4 % (43.0-81.0); PLATELET COUNT (AUTO) 606 /CMM (150-450); RED BLOOD CELL COUNT(AUTO) 2.54 MIL/uL (4.5-6.0); WHITE BLOOD COUNT (AUTO) 5.7 K/uL (4.3-11.0)
[2019-04-08 07:57] LABS: CALCIUM, SERUM 8.1 mg/dL (8.5-10.1); CREATININE 0.8 mg/dL (0.6-1.3); POTASSIUM 3.6 mmol/L (3.5-5.1)
[2019-04-08 08:00] VITALS: BP 126/67
[2019-04-08] MEDS ORDERED: NITROGLYCERIN 0.4 MG/TAB BOTTLE SL ONE (08:30)
[2019-04-08] MEDS ORDERED: METOPROLOL TARTRATE INJ 5 MG/5 ML AMPUL IVP ONE (08:30)
[2019-04-08] MEDS: PANTOPRAZOLE 40 MG VIAL IV SCH ×2 (08:34→16:12)
[2019-04-08] MEDS: Z GUARD REMEDY 2 OZ OINT TP SCH (08:35)
[2019-04-08] MEDS ORDERED: IOHEXOL-350 100 ML VIAL IV ONE ×2 (08:56→09:48)
[2019-04-08] MEDS ORDERED: IV NS 0.9% 250 ML IV ONE (08:56)
[2019-04-08] MEDS ORDERED: CT SWABBABLE VALVE TRANS SET 1 EA INFUS.SET MC ONE (08:56)
--- NOTE | 2019-04-08 09:11 | NUR ---
RN NOTES PATIENT WAS PICKED UP FOR HIS PROCEDURE OF CT ANGIO HEART W/ 3D IMAGE. PATIENT LEFT THE UNIT IN STABLE CONDITION. WILL BE WAITING FOR THE PATIENT'S RETURN.
[2019-04-08] MEDS ORDERED: METOPROLOL TARTRATE INJ 5 MG/5 ML AMPUL ONE (09:18)
--- NOTE | 2019-04-08 10:44 | NUR ---
MS/RN NOTES RECEIVED A PHONE CALL [facility] [employer] SAL[employer] AND PRODUCTION MANAGER [employer] REGARDING THE PATIENT THAT THEY NEED A PRELIMINARY D/C SUMMARY TO BE FAXED OVER THEM FROM THE CM FOR THEM TO START THE PROCESS OF PLACING THE PATIENT FOR TRANSFER. CALLED CURRY SIERRA RIGHT AFTER TO RELAY THE INFORMATION. ACCORDING TO HER SHE WILL FOLLOW UP WITH [employer].
[2019-04-08] MEDS ORDERED: PANT40VI IV (10:56)
[2019-04-08] MEDS ORDERED: PIPE3.379 IV (10:56)
[2019-04-08] MEDS: SOD FERRIC GLUC 125 MG in IV NS 0.9% 100 ML IV SCH (14:45)
[2019-04-08] MEDS ORDERED: FEE PK DOSING 1 MIN EA MC ONE (15:23)
[2019-04-08] MEDS ORDERED: FEE TPN 1 MIN EA MC ONE (15:25)
[2019-04-08] MEDS ORDERED: DEXTROSE 50%-WATER 50 ML DISP.SYRIN IV PRN (15:30)
[2019-04-08] MEDS ORDERED: INSULIN REGULAR, HUMAN 100 UNIT/ML 3 ML VIAL SQ PRN (15:30)
[2019-04-08] MEDS ORDERED: TPN BAG #1 IV PRN ×6 (15:30)
[2019-04-08 16:00] VITALS: BP_SYST 110; BP_SYST 116; BP_DIAS 62; BP_DIAS 72
[2019-04-08] MEDS ORDERED: IV D5/ 0.9% NACL 1,000 ML IV PRN (17:00)
[2019-04-08] MEDS: BLOOD SUGAR DIAGNOSTIC 1 EACH STRIP IN SCH (17:16)
--- NOTE | 2019-04-08 19:20 | NUR ---
RN NOTES: RECEIVED AWAKE ON BED, SEMI FOWLERS POSITION,A/OX1 WITH PERIODS OF CONFUSION,PICC LINE BRYSON INTACT, WITH TPN ONGOING AT 50CC/HR , AND D5NS AT 25 ML/HR,ORIENTED TO UNIT AND STAFF, PER ENDORSEMENT PATIENT REMAINED NPO AND FOR POSSIBLE TRANSFER TO [facility] FOR SURGERY ONCE BED IS AVAILABLE. KEPT ON CLOSE WATCH, BED LOW AND LOCKED, CALL LIGHT WITHIN EASY REACH. WILL CONTINUE TO MONITOR FOR ANY SIGN OF BLEEDING,
--- NOTE | 2019-04-08 19:20 | NUR ---
MS/RN CLOSING NOTES PATIENT CONTINUES TO REMAIN IN STABLE CONDITION THROUGHOUT THE SHIFT. PROVIDED SAFETY AND COMFORT. CONTINUES ON NPO STATUS. PATIENT ON IVF OF D5NS AT 25CC/HR. WELL TPN VIA PICC LINE ON BRYSON @50CC/HR. INFUSING WELL. IV SITE INTACT AND PATENT. NO S/S OF INFECTION OR INFILTRATION. ALL NEEDS ANTICIPATED. KEPT CLEAN AND DRY. CALL LIGHT WITHIN REACHED. BED LOCKED AND IN LOWEST POSITION. SAFETY MAINTAINED. WILL CONTINUE TO MONITOR CLOSELY. ENDORSED TO PM NURSE FOR CECELIA.
[2019-04-08 20:00] VITALS: BP 121/59
[2019-04-09] VITALS (8 sets, daily range): BP systolic 106–145; BP diastolic 59–73
[2019-04-09] MEDS: BLOOD SUGAR DIAGNOSTIC 1 EACH STRIP IN SCH ×4 (00:35→17:02)
--- NOTE | 2019-04-09 00:36 | NUR ---
RN NOTES: BLOOD SUGAR CHECK =95, NO INSULIN PER SCALE, WILL CONTINUE TO MONITOR FOR SIGN OF HYPER/HYPOGLYCEMIA.
[2019-04-09] MEDS: PIPERACILLIN /TAZOBACTAM 3.375 G in IV D5W 100 ML IV SCH ×3 (04:06→20:12)
--- NOTE | 2019-04-09 06:52 | NUR ---
RN NOTES: ABLE TO SLEEP AT SHORT INTERVALS, CALLS AND NEEDS ATTENDED, LATEST BS AT 0600=96, NO INSULIN PER SCALE, TPN ONGOING , IV/ATB ONGOING AT 25ML/HR, FALL,SAFETY AND ASPIRATION PRECAUTION OBSERVE,REMAIN NPO, ENDORSED FOR CONTINUITY OF CARE.
--- NOTE | 2019-04-09 07:25 | NUR ---
MS/RN OPENING NOTES RECEIVED PATIENT IN BED AWAKE ALERT AND ABLE TO MAKE NEEDS KNOWN. PATIENT IS ALERT AND ORIENTED X1-2. NO PAIN OR ACUTE DISTRESS AT THIS TIME. RESPIRATION EVEN AND UNLABORED. SKIN IS DRY WARM TO TOUCH. CONTINUES ON NPO STATUS. PATIENT ON IVF AND TPN. ABLE TO TOLERATE WELL. PICC LINE INTACT AND PATENT. NO S/S OF INFECTION OR INFILTRATION. ALL NEEDS ANTICIPATED. CALL LIGHT WITHIN REACHED. BED LOCKED AND IN LOWEST POSITION. SAFETY MAINTAINED. PLAN OF CARE DISCUSSED. WILL CONTINUE TO MONITOR CLOSELY.
[2019-04-09 07:31] LABS: CALCIUM, SERUM 8.2 mg/dL (8.5-10.1); CREATININE 0.7 mg/dL (0.6-1.3); MAGNESIUM 2.1 mg/dL (1.8-2.4); PHOSPHORUS 2.9 mg/dL (2.5-4.9); POTASSIUM 3.7 mmol/L (3.5-5.1)
[2019-04-09] MEDS: PANTOPRAZOLE 40 MG VIAL IV SCH ×2 (09:11→16:39)
[2019-04-09] MEDS: Z GUARD REMEDY 2 OZ OINT TP SCH (09:12)
[2019-04-09] MEDS: FAT EMULSION 20% 500 ML in PREMIX 1 EA IV SCH (11:16)
[2019-04-09] MEDS: SOD FERRIC GLUC 125 MG in IV NS 0.9% 100 ML IV SCH (14:37)
[2019-04-09] MEDS ORDERED: TPN BAG #2 IV PRN ×4 (16:00)
--- NOTE | 2019-04-09 18:33 | NUR ---
MS/RN CLOSING NOTES PATIENT CONTINUES TO REMAIN IN STABLE CONDITION THROUGHOUT THE SHIFT. PROVIDED COMFORT AND SAFETY. CONTINUES ON NPO STATUS. PATIENT CONTINUES ON IVF AND TPN VIA BRYSON PICC LINE. ABLE TO TOLERATE WELL. PICC LINE INTACT AND PATENT. NO S/S OF INFECTION OR INFILTRATION. NEW IV SITE WAS PLACED ON LEFT WRIST. FLUSHING WELL. ALL NEEDS ANTICIPATED. CALL LIGHT WITHIN REACHED. BED LOCKED AND IN LOWEST POSITION. SAFETY MAINTAINED. WILL CONTINUE TO MONITOR CLOSELY. ENDORSED TO PM NURSE FOR CECELIA.
--- NOTE | 2019-04-09 19:15 | NUR ---
MS RN OPENING NOTES Received patient A/O x 2-3, awake, on RA. No SOB/respiratory distress noted. With TPN infusing well through PICC line BRYSON, no s/sx of infiltration/infection noted. Patient denies any discomfort at this time. Discussed with patient the POC within the shift, patient verbalized understanding. Kept on bed clean, dry and comfortable. On fall precautions. Call light within easy reach. Will continue to monitor accordingly.
[2019-04-10] MEDS: BLOOD SUGAR DIAGNOSTIC 1 EACH STRIP IN SCH ×5 (00:17→23:12)
[2019-04-10 04:00] VITALS: BP 135/64
[2019-04-10] MEDS: PIPERACILLIN /TAZOBACTAM 3.375 G in IV D5W 100 ML IV SCH ×3 (04:06→20:01)
[2019-04-10 06:27] LABS: CALCIUM, SERUM 8.2 mg/dL (8.5-10.1); CREATININE 0.7 mg/dL (0.6-1.3); MAGNESIUM 1.9 mg/dL (1.8-2.4); PHOSPHORUS 3.3 mg/dL (2.5-4.9); POTASSIUM 3.6 mmol/L (3.5-5.1)
--- NOTE | 2019-04-10 07:03 | NUR ---
MS RN CLOSING NOTES Patient asleep, easily awaken. On RA, no SOB/respiratory distress noted. Ambulatory to bathroom with stand by assistance at all time. With BRYSON PICC LINE in place, patent with TPN + Lipids infusing well as ordered., no infiltration or s/sx of infection noted. All nursing needs attended. Due meds given as ordered, no ASE noted. Kept on bed clean, dry and comfortable. Call light within easy reach. On fall precautions. Endorsed to the next shift.
--- NOTE | 2019-04-10 07:25 | NUR ---
RN OPENING NOTES RECEIVED PATIENT SLEEPING IN BED, EASILY AROUSED. HE IS AO X2-3, VERBAL, AND AMBULATORY. HE IS ON RA, TOLERATING WELL, SHOWS NO S/SX OF RESP DISTRESS OR SOB. HE IS CURRENTLY NPO FOR GI BLEED. HE HAS A BRYSON PICC INFUSING TPN AND LIPIDS. HE HAS A L WRIST 22 G, PATENT AND INTACT. HE DENIES ANY PAIN OR DISCOMFORT AT THIS TIME. SAFETY MEASURES HAVE BEEN IMPLEMENTED, CALL LIGHT IS WITHIN REACH, BED IS IN LOWEST AND LOCKED POSITION, SIDE RAILS UP X2, WILL CONTINUE TO MONITOR FOR ANY CHANGES.
[2019-04-10 08:00] VITALS: BP 141/65
[2019-04-10] MEDS: PANTOPRAZOLE 40 MG VIAL IV SCH ×3 (09:00→17:34)
[2019-04-10] MEDS: Z GUARD REMEDY 2 OZ OINT TP SCH (09:26)
[2019-04-10 11:16] LABS: BASOPHILS # (AUTO) 0.1 /CMM (0.0-0.2); BASOPHILS % (AUTO) 0.9 % (0.0-2.0); EOSINOPHILS % (AUTO) 3.1 % (0.0-6.0); HEMATOCRIT 26 % (39-51); HEMOGLOBIN 8.3 g/dL (13.5-17.5); LYMPHOCYTES # (AUTO) 1.3 /CMM (0.8-4.8); LYMPHOCYTES % (AUTO) 24.7 % (20.0-44.0); MEAN CORPUSCULAR HGB CONC 32 g/dl (31.0-36.0); MEAN CORPUSCULAR VOLUME 93 fL (80-96); MONOCYTES # (AUTO) 0.5 /CMM (0.1-1.30); MONOCYTES % (AUTO) 8.4 % (2.0-12.0); NEUTROPHILS # (AUTO) 3.4 /CMM (1.8-8.9); NEUTROPHILS % (AUTO) 62.9 % (43.0-81.0); PLATELET COUNT (AUTO) 583 /CMM (150-450); RED BLOOD CELL COUNT(AUTO) 2.77 MIL/uL (4.5-6.0); WHITE BLOOD COUNT (AUTO) 5.4 K/uL (4.3-11.0)
--- NOTE | 2019-04-10 11:24 | NUR ---
0900 DOSE OF PANTOPRAZOLE GIVEN LATE. READ MED ORDER WRONG AND THOUGHT IT WAS A PO DOSE, PT IS NPO. SPOKE WITH PHARMACY AND WAS TOLD IT WAS OK TO ADMINISTER NOW. WILL CONTINUE TO MONITOR
[2019-04-10] MEDS ORDERED: TPN BAG #3 IV PRN ×6 (13:00)
[2019-04-10 16:00] VITALS: BP 140/69
--- NOTE | 2019-04-10 18:50 | NUR ---
RN CLOSING NOTES PATIENT IS RESTING IN BED COMFORTABLY, DENIES ANY PAIN OR DISCOMFORT AT THIS TIME. PT REFUSED LINEN CHANGE. TPN BAG HAS BEEN CHANGED, LIPIDS FINISHED INFUSING. PATIENT HAS BEEN NPO. PT NEEDS HAVE BEEN MET. VITAL SIGNS ARE STABLE, NO ACUTE CHANGES OCCURRED THROUGHOUT THE DAY. SAFETY MEASURES HAVE BEEN IMPLEMENTED, CALL LIGHT IS WITHIN REACH, BED IS IN LOWEST AND LOCKED POSITION, SIDE RAILS UP X2, WILL ENDORSE TO NIGHTSHIFT RN FOR CONTINUITY OF CARE.
--- NOTE | 2019-04-10 19:37 | NUR ---
MS RN NOTES RECEIVED PT ON BED. A/O X3. ON ROOM AIR NO RESPIRATORY DISTRESS NOTED. IV ACCESS ON LWRIST G22 PATENT AND INTACT. AND BRYSON PICC WITH TPN RUNNING @ 60CC/HR. HEAD OF BED ELEVATED. SIDE RAILS UP. CALL LIGHT WITHIN REACH. BED ALARM ON. WILL CONTINUE TO MONITOR PT CLOSELY.
[2019-04-10 20:00] VITALS: BP 137/42
--- NOTE | 2019-04-11 01:59 | NUR ---
rn initial notes: received report from joyce smith. pt was transferred from [facility]. pt ios a/o x3 on ra respirations even and unlabored. pt has sam picc line with ongoing tpn bag #3 at 60ml/hr. pt also has iv access on left wrist g 22 , patent and flushing well, on hl. ble offloaded on pillows, scd in use. pt on npo okay for ice chips. inventory of belongings completed by eddie unger. safety precautions for fall initiated, call light in reach, will continue monitoring pt.
--- NOTE | 2019-04-11 02:04 | NUR ---
MS RN NOTES PT TRANSFERRED STABLE. REPORT GIVEN TO 2WEST RN.
[2019-04-11 03:45] VITALS: BP 141/72
[2019-04-11] MEDS: PIPERACILLIN /TAZOBACTAM 3.375 G in IV D5W 100 ML IV SCH ×2 (03:50→13:03)
[2019-04-11] MEDS ORDERED: TPN BAG #4 IV PRN ×4 (05:00)
[2019-04-11] MEDS: BLOOD SUGAR DIAGNOSTIC 1 EACH STRIP IN SCH ×3 (05:50→18:12)
--- NOTE | 2019-04-11 05:51 | NUR ---
RN NOTES: PT'S BLOOD SUGAR IS 100, NO INSULIN COVERAGE GIVEN PER SLIDING SCALE
--- NOTE | 2019-04-11 06:37 | NUR ---
TPN BAG #4: ABOVE TPN COMPLETED/FINISHED. NEW BAG OF TPN ADMINISTERED AT THIS TIME, COSIGNED BY ANOTHER NAZARIO RICH.
--- NOTE | 2019-04-11 07:17 | NUR ---
RN CLOSING NOTES: PT IN BED, DENIES ANY PAIN OR DISCOMFORT AT THIS TIME. NO S/S OF ACTIVE BLEEDING NOTED. IV ACCESS REMAINS PATENT AND FLUSHING WELL, INFUSING WITH TPN BAG #4 AT 60 ML/HR. BLE OFFLOADED ON PILLOWS. REMAINS NPO. [facility]. SAFETY PRECAUTIONS FOR FALL REMAINS ENGAGED, CALL LIGHT IN REACH, WILL ENDORSE TO DAY RN FOR CONTINUITY OF CARE.
--- NOTE | 2019-04-11 07:23 | NUR ---
MS RN OPENING NOTES RECEIVED PATIENT IN BED, ALERT AND AWAKE ORIENTED X3 WATCHING TV. DENIES ANY C/O PAIN NOR DISCOMFORT. NO SOB OBSERVED. BRYSON PICC LINE DOUBLE LUMEN INTACT AND PATENT INFUSING TPN @ 60ML/HR NASEEM WELL. BED IN LOWEST POSITION, LOCKED. CALL LIGHT WITHIN REACH.
[2019-04-11 07:37] LABS: BASOPHILS # (AUTO) 0.2 /CMM (0.0-0.2); BASOPHILS % (AUTO) 2.2 % (0.0-2.0); EOSINOPHILS % (AUTO) 2.5 % (0.0-6.0); HEMATOCRIT 28 % (39-51); HEMOGLOBIN 9.2 g/dL (13.5-17.5); LYMPHOCYTES # (AUTO) 1.9 /CMM (0.8-4.8); LYMPHOCYTES % (AUTO) 23.4 % (20.0-44.0); MEAN CORPUSCULAR HGB CONC 33 g/dl (31.0-36.0); MEAN CORPUSCULAR VOLUME 92 fL (80-96); MONOCYTES # (AUTO) 0.5 /CMM (0.1-1.30); MONOCYTES % (AUTO) 6.1 % (2.0-12.0); NEUTROPHILS # (AUTO) 5.3 /CMM (1.8-8.9); NEUTROPHILS % (AUTO) 65.8 % (43.0-81.0); PLATELET COUNT (AUTO) 491 /CMM (150-450); RED BLOOD CELL COUNT(AUTO) 3.02 MIL/uL (4.5-6.0); WHITE BLOOD COUNT (AUTO) 8.1 K/uL (4.3-11.0)
[2019-04-11 07:42] LABS: CALCIUM, SERUM 8.3 mg/dL (8.5-10.1); CREATININE 0.7 mg/dL (0.6-1.3); PHOSPHORUS 3.6 mg/dL (2.5-4.9); POTASSIUM 4.2 mmol/L (3.5-5.1)
[2019-04-11 08:00] VITALS: BP 137/71
--- NOTE | 2019-04-11 09:30 | NUR ---
MS RN NOTES PATIENT SEEN BY MAYA, MAYA DISCUSSED WITH PATIENT REGARDING CURRENT MEDICAL CONDITION. PATIENT STATED, HE'S HUNGRY. MAYA INFORMED AND EDUCATED PATIENT, NEEDS TO BE NPO AT THIS TIME TILL FURTHER ORDER BUT OK TO HAVE ICE CHIPS.
[2019-04-11] MEDS: PANTOPRAZOLE 40 MG VIAL IV SCH ×2 (09:42→17:46)
[2019-04-11 10:00] VITALS: BP 135/75
--- NOTE | 2019-04-11 10:00 | NUR ---
MS RN NOTE CALLED PHARMACY REGARDING Z-GUARD AND AWAITING FOR PHARMACY TO DELIVERY.
--- NOTE | 2019-04-11 11:00 | NUR ---
MS RN NOTES RECEIVED A CALL FORM [facility] TRANSFER AND SPOKE TO KRISTIN , SHE IS NOT SURE IF THE PATIENT IS ACCEPTED YET BUT WILL REVIEW THE CHART TODAY. BRIE ZAPIEN.
[2019-04-11] MEDS: FAT EMULSION 20% 500 ML in PREMIX 1 EA IV SCH (13:04)
[2019-04-11] MEDS: Z GUARD REMEDY 2 OZ OINT TP SCH (13:16)
[2019-04-11] MEDS ORDERED: TPN BAG #6 IV PRN ×4 (14:00)
[2019-04-11] MEDS ORDERED: TPN BAG #5 IV PRN ×6 (14:00)
[2019-04-11 16:00] VITALS: BP 144/76
--- NOTE | 2019-04-11 18:37 | NUR ---
MS RN NOTES RECEIVED A CALL FROM [facility] SESAR REGARDING ACCEPTANCE AND BED AVAILABILITY. PER SESAR, SHE NEEDS AN ADDENDUM D/C SUMMARY SINCE D/C SUMMARY WAS THE 13TH, CHART COPY, CD AND SO NEEDS TO ARRANGE TRANSPORTATION. PAGED [facility] FOR [facility] GARCIA, AWAITING FOR RESPONSE. CURRY MORALES. CONTACT FOR SESAR FAX: [facility].
--- NOTE | 2019-04-11 18:45 | NUR ---
MS RN NOTES CALLED [facility] AGAIN, PER OFFSET SECOND PRESS OPERATOR, THEY ARE HAVING PROBLEMS WITH THEIR SYSTEM.
--- NOTE | 2019-04-11 19:22 | NUR ---
MS RN NOTES PAGED [facility], AWAITING FOR [facility] RESPONSE.
--- NOTE | 2019-04-11 19:22 | NUR ---
MS RN NOTES SPOKE TO DR. LEPE RE: ADDENDUM TO D/C SUMMARY DATED ON 04/08 DUE TO BED AVAILABILITY TODAY ONLY AT [facility]. PER DR. LEPE HE WILL TAKE A LOOK AT IT. INFORMED MD THAT PATIENT IS ACCEPTED TODAY ONLY AND BED AVAILABILITY IS NOT GUARANTEED TOMORROW. PATIENT NEEDS TO BE TRANSFERRED FOR [facility] FOR SURGERY. ENDORSED TO ONCOMING SHIFT.
--- NOTE | 2019-04-11 19:30 | NUR ---
MS RN CLOSING NOTES ALERT AND AWAKE ORIENTED X3 WATCHING TV. DENIES ANY C/O PAIN NOR DISCOMFORT. NO SOB OBSERVED. DENIES C/O N/V/CARTWRIGHT. DENIES C/O OF TARRY STOOL. BRYSON PICC LINE DOUBLE LUMEN INTACT AND PATENT INFUSING TPN @ 60ML/HR AND LIPIDS @ 20ML/HR NASEEM WELL. BED IN LOWEST POSITION, LOCKED. CALL LIGHT WITHIN REACH. ABLE TO VERBALIZE NEEDS. PATIENT REMAINS STABLE AT THIS TIME. ENDORSED TO ONCOMING SHIFT FOR CONTINUITY OF CARE AND [facility] STATUS AND UPDATE FOR TRANSFER.
--- NOTE | 2019-04-11 19:40 | NUR ---
RN OPENING NOTES RECEIVED REPORT FROM JOSE FAJARDO. FOUND Pt AWAKE, RESTING IN BED. RESPIRATIONS EVEN AND UNLABORED WITH EQUAL CHEST RISE AND FALL. NO S/S OF ACUTE DISTRESS OR SOB NOTED. Pt IS A/OX3, VERBAL, ABLE TO MAKE NEEDS KNOWN. IV ACCESS ON LAC #22G, LHAND #20G, & BRYSON PICC LINE, WITH TPN RUNNING AT 60ML/HR & LIPIDS @20ML/HR. Pt IS NPO BUT ICE CHIPS ARE OK. Pt IS AWARE AND COMPLIANT WITH DIET. Pt IS CURRENTLY IN THE PROCESS OF BEING DISCHARGED FROM [facility] & WILL BE TRANSFERRED TO [facility] FOR TERTIARY CARE FOR SURGERY. PER JOSE LANGE, STILL WAITING FOR DR LEPE TO DO AN ADDENDUM TO THE D/C SUMMARY NOTE WITH TODAY's DATE ON IT. PER JOSE LANGE, [facility] WILL NOT ACCEPT AN OLD DC SUMMARY NOTE, NEEDS TO BE CURRENT WITH CURRENT DATE. JOSE LANGE SPOKE WITH DR LEPE WHO IS THE NIGHT ELECTRICIAN SUPERVISOR HOSPITALIST, AND HE SAID HE WILL SEE WHAT HE CAN DO ABOUT IT. PER REPORT THE [facility] BED WILL ONLY BE HELD TILL TODAY, NO GUARANTEE THAT IT WILL BE HELD TILL TOMORROW. ONCE DR LEPE DOES THE ADDENDUM, WILL FAX IT TO [facility], GIVE REPORT, & SCHEDULE ACLS TRANSPORT SAMPLE COORDINATOR FOR Pt TO BE TRANSFERRED TO THE [facility].
[2019-04-11 20:18] VITALS: BP 144/76
--- NOTE | 2019-04-11 21:01 | NUR ---
RN NOTES SPOKE WITH GENARO LING GREENS LABORER ON THE PHONE. GREENS LABORER CONFIRMED TO CONTINUE TPN ON Pt DURING TRANSPORT. WILL ARRANGE ACLS TRANSPORT FOR Pt TO [facility].
--- NOTE | 2019-04-11 21:30 | NUR ---
RN NOTES REPORT GIVEN TO [facility] [place] [address] [address] [facility] [address]: RUTH VANG FLOOR: 8 [facility] ROOM #: [id number] WILL CALL TO SCHEDULE ACLS TRANSPORT FROM [place] TO [facility].
--- NOTE | 2019-04-11 21:37 | NUR ---
RN NOTES SCHEDULED ACLS TRANSPORT THERAPEUTIC MASSAGE TECHNICIAN WITH [facility]. Pt WILL BE TRANSPORTED TO [facility] WITH PICC LINE AND TPN INFUSING. EARLIEST THERAPEUTIC MASSAGE TECHNICIAN TIME IS @0145AM. TRIP #: [id number].
[2019-04-11 22:00] VITALS: BP 144/76
--- NOTE | 2019-04-11 22:03 | NUR ---
RN NOTES CALLED [facility] [phone]. WAS ON HOLD, NO ANSWER. LEFT VOICE MAIL TO INFORM THEM OF THE [facility] FURNACE TENDER TIME, WHICH IS SCHEDULED AT 0145AM.
--- NOTE | 2019-04-12 00:30 | NUR ---
RN NOTES ACCUCHECK BG 98. NO COVERAGE NEEDED AT THIS TIME. CURRENTLY ON TPN WITH LIPIDS.
[2019-04-12] MEDS: BLOOD SUGAR DIAGNOSTIC 1 EACH STRIP IN SCH (00:34)
--- NOTE | 2019-04-12 04:20 | NUR ---
EXECUTIVE WELLNESS PROGRAMS DIRECTOR NOTES ACLS [facility] ARRIVED FOR TRANSPORT TO [facility]. GAVE REPORT TO EMT & RN. STARTED BAG#5 OF TPN PRIOR TO Pt LEAVING THE FLOOR. TPN RUNNING AT 60ML/HR & LIPID RUNNING AT 20ML/HR. VS STABLE. ALL IV ACCESS STILL INTACT. NO S/S OF ACUTE DISTRESS OR SOB NOTED, RESPIRATIONS EVEN AND UNLABORED. SAFETY MEASURES IN PLACE. Pt SAFELY TRANSFERRED TO AMBULANCE [facility]. ALL NEEDS MET AND ATTENDED TO. CALLED [facility] TO INFORM THEM THAT THE AMBULANCE HAS ARRIVED HERE AT [facility] AND WILL BE ON THEIR WAY TO [facility] WITH THE Pt SHORTLY.
== END 2019-04-12 04:20 | disposition short-term general hospital (02) | DRG 374 ==
LOC: ER 11:27 → EDBD 11:27 → ICU 12:46 → EDBD 12:46 → TELE-TD 04-07 18:45 → MEDSG1 04-08 09:36 → MEDSG2 04-11 01:45
PROVIDERS: ADMIT Nurse Practitioner Acute Care; ATTEND Nurse Practitioner Acute Care
PROC: 30233N1 Transfusion of Nonautologous Red Blood Cells into Peripheral Vein, Percutaneous Approach (ICD-10-PCS; principal; 2019-04-02)
PROC: 02HV33Z Insertion of Infusion Device into Superior Vena Cava, Percutaneous Approach (ICD-10-PCS; 2019-04-08)
PROC: B548ZZA Ultrasonography of Superior Vena Cava, Guidance (ICD-10-PCS; 2019-04-08)
DX: C16.9 Malignant neoplasm of stomach, unspecified (principal); G93.41 Metabolic encephalopathy; D62 Acute posthemorrhagic anemia; I47.2 Ventricular tachycardia; K57.90 Diverticulosis of intestine, part unspecified, without perforation or abscess without bleeding; Z59.0 Homelessness; E87.6 Hypokalemia; D47.3 Essential (hemorrhagic) thrombocythemia; D72.829 Elevated white blood cell count, unspecified; F17.210 Nicotine dependence, cigarettes, uncomplicated; J44.9 Chronic obstructive pulmonary disease, unspecified; E88.09 Other disorders of plasma-protein metabolism, not elsewhere classified; K31.89 Other diseases of stomach and duodenum; D50.9 Iron deficiency anemia, unspecified; F43.20 Adjustment disorder, unspecified; F19.10 Other psychoactive substance abuse, uncomplicated; R93.3 Abnormal findings on diagnostic imaging of other parts of digestive tract; R59.0 Localized enlarged lymph nodes
CPT/HCPCS: 36415; 36569; 71045-TC; 71250-TC; 75574; 80048-TC; 80061-TC; 80076-TC; 82310-TC; 82728-TC; 82962-TC; 83540-TC; 83690-TC; 83735-TC; 84100-TC; 84443-TC; 84484-TC; 85025-TC; 85027-TC; 85610-TC; 85730-TC; 86850-TC; 86921-TC; 87081-TC; 93307-TC; 94799-TC; A4216; A4349; C1751; C9113; G0378; G0480; J1815; J2405; J2543; J2916; J3370; J3475; J3480; J3490; J7030; J7042; J7050; J7060; P9016-BL; Q9967